=== PATIENT | female | born 1985 | race Caucasian/White ===

== ENCOUNTER 2024-07-17 08:34 | Outpatient (CLI) | payer OTHER, SELFPAY ==
--- NOTE | 2024-07-17 11:30 | NEURO_ITS ---
Impression: # Diabetic complains of numbness of hands. # Evolving right Carpal Tunnel Syndrome. # Normal needle/EMG exam. # Clinical correlation recommended. Nerve Conduction Studies Anti Sensory Summary Table Stim Site NR Peak (ms) P-T Amp (?V) Site1 Site2 Delta-P (ms) Dist (cm) Jani (m/s) Left Median Anti Sensory Run #1 (2-3nd Digit) Wrist 3.2 7.1 Wrist 2-3nd Digit 3.2 14.0 44 Wrist 4.0 10.1 Wrist 2-3nd Digit 3.2 14.0 44 Right Median Anti Sensory (2-3nd Digit) Wrist 4.7 7.6 Wrist 2-3nd Digit 4.7 14.0 30 Wrist 5.0 8.0 Wrist 2-3nd Digit 4.7 14.0 30 Left Radial Anti Sensory (Base 1st Digit) Wrist 1.9 44.4 Wrist Base 1st Digit 1.9 0.0 Right Radial Anti Sensory (Base 1st Digit) Wrist 2.0 29.5 Wrist Base 1st Digit 2.0 0.0 Left Ulnar Anti Sensory (5th Digit) Wrist 2.7 30.2 Wrist 5th Digit 2.7 14.0 52 Right Ulnar Anti Sensory (5th Digit) Wrist 2.1 30.3 Wrist 5th Digit 2.1 14.0 67 Motor Summary Table Stim Site NR Onset (ms) O-P Amp (mV) Site1 Site2 Delta-0 (ms) Dist (cm) Jani (m/s) Left Median Motor (Abd Poll Brev) Wrist 4.0 4.3 Elbow Wrist 4.8 28.0 58 Elbow 8.8 4.7 Right Median Motor (Abd Poll Brev) Wrist 3.4 4.2 Elbow Wrist 5.5 31.0 56 Elbow 8.9 3.7 Left Ulnar Motor (Abd Dig Minimi) Wrist 2.9 5.0 A Elbow Wrist 4.9 29.0 59 A Elbow 7.8 4.3 Right Ulnar Motor (Abd Dig Minimi) Wrist 2.6 5.0 A Elbow Wrist 5.2 31.0 60 A Elbow 7.8 4.3 F Wave Studies NR F-Lat (ms) L-R F-Lat (ms) Left Median (Mrkrs) (Abd Poll Brev) 27.26 0.00 Right Median (Mrkrs) (Abd Poll Brev) 27.26 0.00 Left Ulnar (Mrkrs) (Abd Dig Min) 28.99 1.41 Right Ulnar (Mrkrs) (Abd Dig Min) 27.58 1.41 EMG Side Muscle Nerve Root Ins Act Fibs Amp Dur Recrt Comment Right 1stDorInt Ulnar C8-T1 Nml Nml Nml Nml Nml Right Ext Indicis Radial (Post Int) C7-8 Nml Nml Nml Nml Nml Right Ext Digitorum Radial (Post Int) C7-8 Nml Nml Nml Nml Nml Right BrachioRad Radial C5-6 Nml Nml Nml Nml Nml Right PronatorTeres Median C6-7 Nml Nml Nml Nml Nml Right Abd Poll Brev Median C8-T1 Nml Nml Nml Nml Nml Right ABD Dig Min Ulnar C8-T1 Nml Nml Nml Nml Nml Left 1stDorInt Ulnar C8-T1 Nml Nml Nml Nml Nml Left Ext Indicis Radial (Post Int) C7-8 Nml Nml Nml Nml Nml Left Ext Digitorum Radial (Post Int) C7-8 Nml Nml Nml Nml Nml Left BrachioRad Radial C5-6 Nml Nml Nml Nml Nml Left PronatorTeres Median C6-7 Nml Nml Nml Nml Nml Left Abd Poll Brev Median C8-T1 Nml Nml Nml Nml Nml Left ABD Dig Min Ulnar C8-T1 Nml Nml Nml Nml Nml MTDD
== END 2024-07-17 08:35 | disposition home or self-care (01) ==
LOC: ANHNEURO 08:36
PROVIDERS: PCP Nurse Practitioner Family; Visit Provider Plastic Surgery
DX: G56.03 Carpal tunnel syndrome, bilateral upper limbs (principal)
CPT/HCPCS: 95886; 95911

== ENCOUNTER 2025-10-09 13:37 | Outpatient (CLI) | payer OTHER, SELFPAY ==
--- NOTE | 2025-10-09 14:00 | NEURO_ITS ---
Impression: # Complains of numbness of hands. ? # Bilateral Carpal Tunnel Syndrome, right more than left. ? # Mild right Ulnar Neuropathy across the elbow. ? # Normal Needle/ EMG exam. Nerve Conduction Studies ?Stim Site NR Peak (ms) P-T Amp (?V) Site1 Site2 Delta-P (ms) Dist (cm) Jani (m/s) Left Median Anti Sensory (2-3nd Digit)??? NO RESPONSE Wrist NR Wrist 2-3nd Digit 14.0 Wrist NR Wrist 2-3nd Digit 14.0 Right Median Anti Sensory (2-3nd Digit) Wrist ? 9.2 9.8 Wrist 2-3nd Digit 9.2 14.0 15 Wrist ? 8.3 10.5 Wrist 2-3nd Digit 9.2 14.0 15 Left Radial Anti Sensory (Base 1st Digit) Wrist ? 1.8 25.3 Wrist Base 1st Digit 1.8 0.0 Right Radial Anti Sensory (Base 1st Digit) Wrist ? 1.9 25.2 Wrist Base 1st Digit 1.9 0.0 Left Ulnar Anti Sensory (5th Digit) Wrist ? 3.0 30.6 Wrist 5th Digit 3.0 14.0 47 Right Ulnar Anti Sensory (5th Digit) Wrist ? 2.6 34.7 Wrist 5th Digit 2.6 14.0 54 ?Stim Site NR Onset (ms) O-P Amp (mV) Site1 Site2 Delta-0 (ms) Dist (cm) Jani (m/s) Left Median Motor (Abd Poll Brev) Wrist ? 4.3 3.1 Elbow Wrist 4.6 28.0 61 Elbow ? 8.9 5.9 Right Median Motor (Abd Poll Brev) Wrist ? 4.8 0.4 Elbow Wrist 3.4 30.0 88 Elbow ? 8.2 5.3 Left Ulnar Motor (Abd Dig Minimi) Wrist ? 2.7 7.5 A Elbow Wrist 5.5 31.0 56 A Elbow ? 8.2 6.7 B Elbow Wrist 4.3 23.0 53 B Elbow ? 7.0 6.6 Right Ulnar Motor (Abd Dig Minimi) Wrist ? 3.0 7.6 A Elbow Wrist 5.0 26.0 52 A Elbow ? 8.0 7.6 B Elbow Wrist 3.4 19.0 56 B Elbow ? 6.4 7.0 F Wave Studies ?NR F-Lat (ms) L-R F-Lat (ms) Left Median (Mrkrs) (Abd Poll Brev) ? 29.51 6.52 Right Median (Mrkrs) (Abd Poll Brev) ? 22.98 6.52 Left Ulnar (Mrkrs) (Abd Dig Min) ? 30.16 8.37 Right Ulnar (Mrkrs) (Abd Dig Min) ? 21.79 8.37 Electromyography ?Side Muscle Nerve Root Ins Act Fibs Amp Dur Recrt Comment Right 1stDorInt Ulnar C8-T1 Nml Nml Nml Nml Nml Right Ext Indicis Radial (Post Int) C7-8 Nml Nml Nml Nml Nml Right Ext Digitorum Radial (Post Int) C7-8 Nml Nml Nml Nml Nml Right BrachioRad Radial C5-6 Nml Nml Nml Nml Nml Right PronatorTeres Median C6-7 Nml Nml Nml Nml Nml Right Abd Poll Brev Median C8-T1 Nml Nml Nml Nml Nml Right ABD Dig Min Ulnar C8-T1 Nml Nml Nml Nml Nml Right FlexPolLong Median (Ant Int) C7-8 Nml Nml Nml Nml Nml Right Abd Poll Long Radial (Post Int) C7-8 Nml Nml Nml Nml Nml Left 1stDorInt Ulnar C8-T1 Nml Nml Nml Nml Nml Left Ext Indicis Radial (Post Int) C7-8 Nml Nml Nml Nml Nml Left Ext Digitorum Radial (Post Int) C7-8 Nml Nml Nml Nml Nml Left BrachioRad Radial C5-6 Nml Nml Nml Nml Nml Left PronatorTeres Median C6-7 Nml Nml Nml Nml Nml Left Abd Poll Brev Median C8-T1 Nml Nml Nml Nml Nml Left ABD Dig Min Ulnar C8-T1 Nml Nml Nml Nml Nml Left FlexPolLong Median (Ant Int) C7-8 Nml Nml Nml Nml Nml Left Abd Poll Long Radial (Post Int) C7-8 Nml Nml Nml Nml Nml
--- OUTSIDE RECORDS SUMMARY | 2025-10-09 14:41 | XMS_ITS | Clinical Summary ---
Author Organization [facility] Address [address] [place] [address] Care Team Providers Care Credit Department Manager Name Role Phone Unavailable Primary Care Provider Unavailabl e Source Comments [facility],non-owned Affiliates and Associated Physician Practices is amultiple site organization consisting of ambulatory clinics and hospital sitesin [place], [place], [place] and [place]. This disclosure is being madepursuant to the Care Everywhere program and may not contain all information available regarding this patient. Last updated 18.[facility] Medications * Be aware that medications may not be up to date on this document. Alwaysverify current medications with the patient. amLODIPine (NORVASC) 5 MG tablet Take 5 mg by mouth DAILY. 07/28/2017 Active triamterene-hydr oCHLOROthiazide (MAXZIDE) 75-50 MG tablet Take 1 tablet by mouth DAILY. 07/28/2017 Active Social History Tobacco Use Types Packs/Day Years Used Date Smoking Tobacco: Every Day Cigarettes Smokeless Tobacco: Current Alcohol Use Standard Drinks/Week Comments Yes 0 (1 standard drink = 0.6 oz pur e alcohol) Comments Unknown Sex and Gender Information Value Date Recorded Sex Assigned at Not on file Legal Sex Female 5:29 PM INTAKE MAN Gender Identity Not on file Sexual Orientation Not on file Last Filed Vital Signs Vital Sign Reading Time Taken Comments Blood Pressure 115/69 07/29/2017 2:45 AM CDT Pulse 87 07/29/2017 2:45 AM CDT Temperature 36.6 C (97.9 F) 07/28/2017 9:20 PM CDT Respiratory Rate 16 07/28/2017 9:20 PM CDT Oxygen Saturation 98% 07/29/2017 2:45 AM CDT Inhaled Oxygen Concentration - - Weight 181.4 kg (400 lb) 07/28/2017 9:20 PM CDT Height 165.1 cm (5' 5) 07/28/2017 9:20 PM CDT Body Mass Index 66.56 07/28/2017 9:20 PM CDT Plan of Treatment Health Maintenance Due Date Last Done Comments LIPID TESTING 1984 MAMMOGRAM 1984 HIV SCREENING 1999 HEPATITIS C SCREENING 03/02/2002 DTAP/TDAP/TD VACCINES (1 - Tdap) 2003 HEPATITIS B VACCINE (1 of 3 - 19+ 3-dose series) 2003 HPV VACCINE (1 - 3-dose SCDM series) 2011 DEPRESSION SCREENING 11/28/2024 COVID-19 VACCINE (1 - 2023-2 5 season) 2025 INFLUENZA VACCINE (#1) 2025 ZOSTER VACCINE (1 of 2) 2034 HIB VACCINE Aged Out No longer eligi ble based on patient's age to complete this topic MENINGOCOCCAL (Group B) VACC INE SHARED DECISION-MAKING Aged Out No longer eligibl e based on patient's age to complete this topic MENINGOCOCCAL GROUPS A/C/Y/W VACCINE Aged Out No longer eligible b ased on patient's age to complete this topic PNEUMOCOCCAL VACCINE Aged Out No long er eligible based on patient's age to complete this topic
== END 2025-10-09 13:38 | disposition home or self-care (01) ==
PROVIDERS: PCP Physician Assistant Medical
DX: G56.03 Carpal tunnel syndrome, bilateral upper limbs (principal); G56.21 Lesion of ulnar nerve, right upper limb
CPT/HCPCS: 95886; 95911